=== PATIENT | male | born 1945 | race Two or more races ===

== ENCOUNTER → 2024-04-03 | Outpatient (CLI) | payer MEDICARE, SELFPAY ==
--- NOTE | 2024-04-03 13:48 | ECHOD_ITS ---
Version 2 Reason For Study: Dilated Cardiomyopathy Procedure This was a 2D Doppler, Color Flow transthoracic echocardiogram. Technically difficult study due to patient body habitus. Parasternal images taken with patient laying in right lateral position. Exam performed in department. Left Ventricle Normal LV size. The left ventricular ejection fraction is 25 %. Severe segmental systolic dysfunction (see wall motion). [place] : Akinetic. Mid-Anterior : Severely Hypokinetic. Mid- anteroseptal : Severely Hypokinetic. There is moderate to severe global hypokinesis of the left ventricle. Right Ventricle Normal RV size. ICD or pacer leads identified within the right ventricle. Normal systolic function. At[place] Normal left atrium. Normal right atrium. Mitral Valve Normal mitral valve. Tricuspid Valve Normal tricuspid valve. Aortic Valve Trisinus/trileaflet aortic valve. Pulmonic Valve The pulmonic valve is not well visualized. Great Vessels Normal aortic root. The pulmonary artery is normal size. Inferior vena cava collapse with respiration. Pericardium/Pleural No pericardial effusion. MMode/2D Measurements & Calculations LVIDd: 5.7 cm IVSd: 1.0 cm LA dimension: 3.6 cm LVIDs: 5.0 cm LVPWd: 1.0 cm RVDd: 3.8 cm FS: 12.8 % LAV(MOD-bp): 48.7 ml LVAd ap4: 45.6 cm2 SV(MOD-sp4): 39.8 ml LAV(MOD-bp) Indexed: 23.6 ml/m2 LVLd ap4: 10.2 cm LAV(MOD-sp2): 51.1 ml EDV(MOD-sp4): 168.0 ml LAV(MOD-sp4): 42.7 ml EDV(sp4-el): 173.0 ml LVAs ap4: 37.6 cm2 LVLs ap4: 9.2 cm ESV(MOD-sp4): 128.2 ml ESV(sp4-el): 130.1 ml EF(MOD-sp4): 23.7 % EF(sp4-el): 24.8 % SV(sp4-el): 42.9 ml LA A4 area: 16.2 cm2 RA A4 area: 16.8 cm2 TAPSE: 1.4 cm Time Measurements MV dec time: 0.18 sec Doppler Measurements & Calculations MV E max toribio: 54.9 cm/sec Lat Peak E' Toribio: 8.4 cm/sec Med Peak E' Toribio: 6.6 cm/sec MV A max toribio: 110.3 cm/sec E/E' lat: 6.5 E/E' med: 8.3 MV E/A: 0.50 MV V2 max: 113.2 cm/sec MV dec slope: 308.4 cm/sec2 Ao V2 max: 166.3 cm/sec MV max P.1 mmHg Ao max P.1 mmHg MV V2 mean: 64.6 cm/sec Ao V2 mean: 113.7 cm/sec MV mean P.0 mmHg Ao mean P.0 mmHg MV V2 VTI: 21.8 cm Ao V2 VTI: 33.0 cm AV (velocity ratio): 0.60 LV V1 max: 106.8 cm/sec MR max toribio: 341.8 cm/sec LV V1 max P.7 mmHg MR max P.7 mmHg LV V1 mean P.0 mmHg LV V1 mean: 62.7 cm/sec LV V1 VTI: 19.7 cm ECHO/Echo Complete Interpretation Summary The left ventricular ejection fraction is 25 %. Normal LV size. There is moderate to severe global hypokinesis of the left ventricle. Severe segmental systolic dysfunction (see wall motion). The global longitudinal strain is severely abnormal. The global longitudinal st rain = -6.6% (abnormal). Ordering Physician: Kendall Mary Referring Physician: Kendall Mary Performed By: Dakota Garcia RCS
== END | disposition home or self-care (01) ==
PROVIDERS: PCP Internal Medicine; Referring Provider Internal Medicine Cardiovascular Disease; Visit Provider Internal Medicine Cardiovascular Disease
DX: I42.0 Dilated cardiomyopathy (principal); Z95.810 Presence of automatic (implantable) cardiac defibrillator
CPT/HCPCS: 93306

== ENCOUNTER → 2024-12-05 | Outpatient (CLI) | payer MEDICARE, SELFPAY ==
--- NOTE | 2024-12-05 13:52 | RAD_ITS ---
EXAM: Two-view chest x-ray study. CLINICAL HISTORY: Productive cough. Chronic CHF COMPARISON: None TECHNIQUE: PA and lateral radiographs of the chest were obtained. FINDINGS: Two views of the chest were obtained and demonstrate several 2 mm nodular densities projected over the left lung which could represent summation artifact and/or granulomas. There is no atelectasis, consolidation, effusion or pneumonic infiltrate. Heart size and configuration are within normal limits. Pulmonary vasculature and hilar structures are unremarkable. Trachea is midline. Arteriosclerotic vascular disease of the aorta is noted. Cardiac pacemaker device is identified in the left pectoral region with a single intact lead in satisfactory position. 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 Mild degenerative changes of the thoracic spine are noted. Degenerative changes of the acromioclavicular joints are noted bilaterally. RAD/Chest PA and Lateral IMPRESSION: The 2 mm nodular densities in the left lung most likely represent summation art ifact and/or granulomas. Arteriosclerotic vascular disease of the aorta. Diffuse osteopenia bony thorax with mild degenerative changes of the thoracic s pine and acromioclavicular joints bilaterally. Reading Location: [id number]
[2024-12-05 14:10] LABS: Absolute Lymphocyte Count 4.21 X10^3/uL (0.83-4.51); Absolute Neutrophil Count 3.5 X10^3/uL (2.0-7.7); Basophil# 0.06 X10^3/uL; Basophil% 0.6 % (0-1); Eosinophil# 0.34 X10^3/uL; Eosinophils% 3.6 % (0-5); Hematocrit 41.4 % (40-54); Hemoglobin 13.4 g/dL (13.0-16.5); Lymphocyte # 4.21 X10^3/ul (0.83-4.51); Lymphocyte % 44.9 % (19-41); Mean Corp Hgb Conc 32.4 g/dL (32-36); Mean Corpuscular Hgb 32.2 pg (27.0-32.0); Mean Corpuscular Volume 99.5 fL (80-94); Mean Platelet Vol. 11.1 fl (6.2-12.0); Monocyte# 1.25 X10^3/uL; Monocyte% 13.3 % (0-10); NRBC Flagged by Analyzer 0 % (0-5); Neutrophil # 3.46 X10^3/uL (2.7-7.7); Platelet Count 291 K/mm3 (150-450); RBC Distribution Width SD 47.6 fl (35.1-43.9); Red Blood Count 4.16 M/mm3 (4.6-6.2); White Blood Count 9.4 K/mm3 (4.4-11.0)
[2024-12-05 15:43] LABS: Anion Gap 10 (5-15); BUN 14 mg/dL (4-19); BUN/Creat Ratio 11.3 RATIO (10-20); Calcium,Total 8.9 mg/dL (7.6-11.0); Carbon Dioxide 28.4 mmol/L (21.0-32.0); Chloride 99 mmol/L (98-108); Creatinine, Serum 1.25 mg/dL (0.70-1.20); EST Glomerular Filtration Rate 58 (>60); Glucose 99 mg/dL (70-99); Potassium 3.9 mmol/L (3.3-5.1); Pro- Brain NATRIURETIC PEPTIDE 1303 pg/mL (<=1800); Sodium Level 138 mmol/L (133-145)
== END | disposition home or self-care (01) ==
PROVIDERS: PCP Internal Medicine; Referring Provider Physician Assistant Medical; Visit Provider Physician Assistant Medical
DX: I50.22 Chronic systolic (congestive) heart failure (principal); I47.29 Other ventricular tachycardia; I25.5 Ischemic cardiomyopathy; Z95.810 Presence of automatic (implantable) cardiac defibrillator; R05.8 Other specified cough
CPT/HCPCS: 36415; 71046; 80048; 83880; 85025

== ENCOUNTER → 2025-06-18 | Outpatient (CLI) | payer MEDICARE, SELFPAY ==
[2025-06-18 16:24] LABS: Mucous, Urine 0 SEEN /hpf (<or=2+)
[2025-06-18 18:56] LABS: Hematocrit 41.2 % (40-54); Hemoglobin 13.1 g/dL (13.0-16.5); Immature Granulocytes Count 0.070 X10^3/uL (0.0-0.0); Mean Corp Hgb Conc 31.8 g/dL (32-36); Mean Corpuscular Volume 99.8 fL (80-94); Mean Platelet Vol. 11.7 fl (6.2-12.0); NRBC Flagged by Analyzer 0 % (0-5); POSITIVE DIFFERENTIAL YES; Platelet Count 278 K/mm3 (150-450); RBC Distribution Width CV 13.4 % (11.6-14.6); RBC Distribution Width SD 49.5 fl (35.1-43.9); Red Blood Count 4.13 M/mm3 (4.6-6.2); White Blood Count 8.4 K/mm3 (4.4-11.0)
[2025-06-18 19:04] LABS: Differential Indicated SCAN CRITERIA MET
[2025-06-18 19:41] LABS: Creatinine, Urine (random) 122.00 mg/dL (39.00-259.00); Microalbumin,Random Urine < 12.0 mg/L (<20 mg/L)
[2025-06-18 19:47] LABS: Color, Urine Yellow (Yellow); Glucose, Dipstick Normal (Normal); Ketone-Dipstick Negative (Negative); Leukocyte Esterase-Dipstick Negative /ul (Negative); Nitrite-Dipstick Negative (Negative); Occult Blood-Urine Negative /ul (Negative); Protein-Dipstick 15 mg/dl (Negative); Specific Gravity, Urine 1.015 (1.002-1.030); Urine Bilirubin Dipstick Negative (Negative)
[2025-06-18 21:37] LABS: Differential Comment SCANNED
[2025-06-18 21:41] LABS: AST(SGOT) 16 U/L (<=37); Alanine Aminotransfer ALT/SGPT 10 U/L (<=46); Albumin, Serum 3.9 g/dL (3.4-4.8); Alkaline Phosphatase 96 U/L (40-129); Anion Gap 11 (5-15); BUN 14 mg/dL (4-19); BUN/Creat Ratio 11.3 RATIO (10-20); Calcium,Total 9.0 mg/dL (7.6-11.0); Carbon Dioxide 28.2 mmol/L (21.0-32.0); Chloride 100 mmol/L (98-108); Globulin 3.1 g/dL (2.2-4.2); Glucose 93 mg/dL (70-99); Potassium 4.3 mmol/L (3.3-5.1); Vitamin D,25 Hydroxy 41.9 ng/mL (30-100)
[2025-06-18 21:49] LABS: Red Blood Cells-Urine 0-5 SEEN /hpf (0-5); Squamous Epithelial Cells - UA 0-5 SEEN /hpf (0-5)
== END | disposition home or self-care (01) ==
LOC: MTLAB 16:06
PROVIDERS: PCP Internal Medicine; Referring Provider Internal Medicine; Visit Provider Internal Medicine
DX: R73.09 Other abnormal glucose (principal); E78.00 Pure hypercholesterolemia, unspecified; E55.9 Vitamin D deficiency, unspecified
CPT/HCPCS: 36415; 80053; 81001; 82043; 82306; 82570; 83036; 84443; 85025

== ENCOUNTER → 2025-07-18 | Outpatient (CLI) | payer MEDICARE, SELFPAY ==
--- NOTE | 2025-07-18 15:30 | RAD_ITS ---
PROCEDURE: RAD/Chest PA and Lateral
== END | disposition home or self-care (01) ==
LOC: MTRAD 15:30
PROVIDERS: PCP Internal Medicine; Referring Provider Physician Assistant; Visit Provider Physician Assistant
DX: R05.9 Cough, unspecified (principal)
CPT/HCPCS: 71046